=== PATIENT | male | born 1985 | race Two or more races ===

== ENCOUNTER 2018-04-21 20:20 | Inpatient (IN) | payer SELFPAY ==
[~2018-04-21] VITALS: Ht 175.3 cm; Wt 87.3 kg
[2018-04-21] MEDS ORDERED: SODIUM CHLORIDE 0.9% 1,000 ML IVB ONE (21:03)
[2018-04-21 21:47] LABS: Basophils # (auto) 0 uL; Basophils % (auto) 0.1 % (0.0-2.0); Eosinophils # (auto) 0 uL; Eosinophils % (auto) 0.3 % (0.0-7.0); Hematocrit 42.5 % (41.0-53.0); Hemoglobin 14.3 g/dL (13.5-17.5); Lymphocytes # (auto) 1.1 uL; Lymphocytes % (auto) 9.7 % (10.0-50.0); Mean Corpuscular Hemoglobin 30.5 pg (28.0-32.0); Mean Corpuscular Hgb Conc. 33.7 g/dL (32.0-36.0); Mean Corpuscular Volume 90.4 fL (80.0-100.0); Monocytes # (auto) 0.8 uL; Monocytes % (auto) 7.5 % (0.0-12.0); Neutrophils % (auto) 82.4 % (37.0-80.0); Platelet Count (auto) 217 10^3/uL (140-450); Red Cell Distribution Width 12.7 % (11.8-14.3)
[2018-04-21 21:54] LABS: Albumin 3.5 g/dL (3.4-5.0); Calcium 7.8 mg/dL (8.5-10.1); Magnesium 2.2 mg/dL (1.6-2.6); Potassium 4.1 mmol/L (3.5-5.1)
[2018-04-21 21:59] LABS: Bilirubin, Total 0.3 mg/dL (0.2-1.0); Total Protein 6.8 g/dL (6.4-8.2)
[2018-04-21 22:03] LABS: INR 0.96 (0.9-1.15); Partial Thromboplastin Time 23.6 sec (23.78-33.04); Prothrombin Time 10.3 sec (9.27-12.13)
[2018-04-21 23:18] LABS: Urine Bacteria NONE SEEN /hpf (None Seen); Urine Blood Negative /uL (Negative); Urine Specific Gravity 1.012 (1.001-1.035); Urine WBC 2 /hpf (0 - 3)
[2018-04-21 23:33] LABS: Alcohol, Urine < 3.0 mg/dL (0-5); Amphetamine Screen, Urine NEGATIVE (NEGATIVE); Barbiturate Scree,Urine NEGATIVE (NEGATIVE); Benzodiazephine Screen, Urine NEGATIVE (NEGATIVE); Cannabinoid Screen, Urine NEGATIVE (NEGATIVE); Cocaine Screen, Urine NEGATIVE (NEGATIVE); Opiate Scree,Urine NEGATIVE (NEGATIVE); Phencyclidine Screen, Urine NEGATIVE (NEGATIVE)
[2018-04-22] VITALS (19 sets, daily range): BP systolic 88–143; BP diastolic 24–87
[2018-04-22] MEDS ORDERED: HYDROcodone-ACET 5/325MG TAB PO PRN (02:15)
[2018-04-22] MEDS ORDERED: ONDANSETRON HCL 4 MG/2 ML VIAL IV PRN (02:15)
[2018-04-22] MEDS ORDERED: MORPHINE SULFATE 4 MG/ML SYR/VIAL IV PRN (02:15)
[2018-04-22] MEDS ORDERED: ATORVASTATIN 20 MG TAB PO ONE (02:15)
[2018-04-22] MEDS ORDERED: ASPirin 81 mg TAB PO ONE (02:15)
[2018-04-22] MEDS ORDERED: TEMAZEPAM 15 MG CAP PO PRN (02:15)
[2018-04-22] MEDS ORDERED: ACETAMINOPHEN 325 MG TAB PO PRN (02:15)
[2018-04-22] MEDS ORDERED: ENOXAPARIN SOD 100 MG/1 ML SYRINGE SC ONE (02:15)
[2018-04-22] MEDS ORDERED: NITROGLYCERIN 0.4 MG SL TAB SL PRN (02:15)
[2018-04-22] MEDS: SODIUM CHLORIDE 0.9% 1,000 ML IV SCH ×3 (02:54→20:26)
[2018-04-22] MEDS ORDERED: CALCIUM CARB 500 MG CHEW TAB PO ONE (06:00)
[2018-04-22] MEDS ORDERED: ENOXAPARIN SOD 100 MG/1 ML SYRINGE SC SCH (10:00)
[2018-04-22] MEDS ORDERED: FAMOTIDINE 20 MG TAB PO SCH (10:00)
[2018-04-22] MEDS: ASPirin 81 mg TAB PO SCH (10:13)
[2018-04-22] MEDS ORDERED: ANGIOMAX 250 MG VIAL IV ONE (14:12)
[2018-04-22] MEDS ORDERED: SODIUM CHL 0.9% 50 ML ONE (14:13)
[2018-04-22] MEDS ORDERED: fentaNYL CITRATE 100 MCG/2 ML VL ONE (14:13)
[2018-04-22] MEDS ORDERED: MIDAZOLAM HCL 1MG/1ML-2 ML VIAL ONE (14:13)
[2018-04-22] MEDS ORDERED: IODIXANOL 320MG/ML 100ML BTL IV ONE (14:14)
[2018-04-22] MEDS ORDERED: LIDOCAINE 2%HCL (LOCAL ANESTH.) INJ 20ML MDV ONE (14:15)
[2018-04-22] MEDS ORDERED: VERAPAMIL 2.5MG/ML INJ 2ML VIAL IV ONE (14:46)
[2018-04-22] MEDS ORDERED: DOPamine 1600MCG/ML D5W 250 ML IV ONE (15:03)
[2018-04-22] MEDS ORDERED: ATROPINE SULF 1 MG/10ml SYR ONE (15:03)
[2018-04-22] MEDS ORDERED: EPTIFIBATIDE INJ (2MG/ML) 10ML VIAL IV ONE ×3 (15:08→15:32)
[2018-04-22] MEDS ORDERED: ONDANSETRON HCL 4 MG/2 ML VIAL ONE (15:19)
[2018-04-22] MEDS ORDERED: TICAGRELOR 90 MG TAB ONE (15:21)
[2018-04-22] MEDS ORDERED: ASPirin 81 mg TAB ONE (15:21)
[2018-04-22] MEDS ORDERED: DOPamine 1600MCG/ML D5W 250 ML IV SCH (16:18)
[2018-04-22] MEDS ORDERED: PANTOPRAZOLE 40 MG/10 ML VIAL IV ONE (17:00)
[2018-04-22] MEDS ORDERED: ONDANSETRON HCL 4 MG/2 ML VIAL IV ONE (17:00)
[2018-04-22] MEDS: PANTOPRAZOLE 40 MG/10 ML VIAL IV SCH ×2 (17:15→22:19)
[2018-04-22 18:02] LABS: Hematocrit 42.2 % (41.0-53.0); Hemoglobin 14.2 g/dL (13.5-17.5)
--- NOTE | 2018-04-22 19:10 | NUR ---
Admit to ICU PETEY TESFAYE admitted to ICU from skilled laborer via bed, alert, oriented,on environmental monitoring technician, and portable 02 with IVF infusing in the left hand and dopamine in the right forearm @ 8 mcg/min.Patient connected to unit monitoring and oxygen, and weighed by bedscale. Patient oriented to Irais Velarde, primary RN, unit, room, bed, and unit policies regarding patient care and visiting hours. All questions and concerns addressed, patient verbalized understanding. NOTE: Initial VS taken. T 98.4 HR 53 R 20, BP 103/51, MRSA swab done and specimen sent to lab. Left wrist dressing noted to be dry and intact with no bruises or any signs of bleeding, both radial and pedal pulses are palpable.
--- NOTE | 2018-04-22 21:00 | NUR ---
Dopamine drip titrated to 5 mcg/min, BP 143/62, 56. Will continue to monitor.
[2018-04-22] MEDS ORDERED: ENOXAPARIN SOD 80 MG/0.8ML SYRINGE SC SCH (22:00)
[2018-04-22] MEDS ORDERED: ATORVASTATIN 20 MG TAB PO SCH (22:00)
[2018-04-22] MEDS: ATORVASTATIN 20 MG TAB PO SCH (22:19)
[2018-04-23] VITALS (68 sets, daily range): BP systolic 81–123; BP diastolic 33–71
[2018-04-23] MEDS ORDERED: CLOPIDOGREL BISULFATE 75 MG TAB PO ONE ×2 (04:00→11:30)
[2018-04-23 05:56] LABS: Basophils # (auto) 0 uL; Basophils % (auto) 0.2 % (0.0-2.0); Eosinophils # (auto) 0 uL; Eosinophils % (auto) 0.4 % (0.0-7.0); Hematocrit 41.2 % (41.0-53.0); Hemoglobin 13.7 g/dL (13.5-17.5); Lymphocytes # (auto) 1.6 uL; Lymphocytes % (auto) 15.3 % (10.0-50.0); Mean Corpuscular Hemoglobin 30.2 pg (28.0-32.0); Mean Corpuscular Hgb Conc. 33.3 g/dL (32.0-36.0); Mean Corpuscular Volume 90.8 fL (80.0-100.0); Monocytes # (auto) 0.7 uL; Monocytes % (auto) 7.1 % (0.0-12.0); Neutrophils # (auto) 7.9 uL; Platelet Count (auto) 195 10^3/uL (140-450); Red Blood Cells 4.54 10^6/uL (4.5-5.90); Red Cell Distribution Width 12.8 % (11.8-14.3); White Blood Cell 10.2 10^3/uL (4.4-10.8)
[2018-04-23 06:18] LABS: Potassium 3.3 mmol/L (3.5-5.1)
[2018-04-23 06:26] LABS: Albumin 3.2 g/dL (3.4-5.0); Bilirubin, Total 0.7 mg/dL (0.2-1.0); Calcium 7.6 mg/dL (8.5-10.1); Total Protein 6.4 g/dL (6.4-8.2)
--- NOTE | 2018-04-23 07:07 | NUR ---
Closing shift note Resting on bed with no signs of distress, still on dopamine drip @ 5mcg/min, BP 92/50 HR 57
--- NOTE | 2018-04-23 08:00 | NUR ---
Opening Shift Note Assumed care of patient, awake and alert. No S/S of distress/SOB or pain. LT radial dressing dry and intact, palpable pulses, no hematoma, bruising or signs of bleeding noted. Bed locked on low position, side rails up x2, bed alarms on at all times, call cardenas within reach, instructed on POC and to call for assist PRN, will continue to monitor for changes Q1hr and PRN.
--- NOTE | 2018-04-23 08:25 | NUR ---
Paged Dr Bustamante and called back, made aware of patient's potassium of 3.3, updated on patient's status. Received telephone order to give potassium PO. Will carry out new orders.
[2018-04-23] MEDS ORDERED: POTASSIUM CHL 20 Meq TABLET PO ONE (08:45)
--- NOTE | 2018-04-23 08:58 | NUR ---
Dr Bustamante at bedside, updated on patient's status. Will carry out new orders.
[2018-04-23] MEDS: PANTOPRAZOLE 40 MG/10 ML VIAL IV SCH ×2 (09:45→22:24)
[2018-04-23] MEDS: ASPirin 81 mg TAB PO SCH (09:45)
[2018-04-23] MEDS: CALCIUM ACETATE 667 MG CAP PO SCH ×2 (09:46→17:41)
--- NOTE | 2018-04-23 11:15 | NUR ---
Dr Lee at bedside, updated on patient's status. Will carry out new orders.
[2018-04-23] MEDS ORDERED: SODIUM CHLORIDE 0.9% 500 ML IV ONE (12:30)
[2018-04-23] MEDS: SODIUM CHLORIDE 0.9% 1,000 ML IV SCH (14:02)
--- NOTE | 2018-04-23 16:11 | NUR ---
LEFT MESSAGE FOR DR KEENE TO UPDATE MD REGARDING CLEARED FOR TELE
--- NOTE | 2018-04-23 19:45 | NUR ---
ACKNOWLEDGE TELEMETRY ORDERS, HOWEVER, SBP HOVERING IN 80s, WILL MONITOR BEFORE TRANSFERRING OUT.
--- NOTE | 2018-04-23 20:12 | NUR ---
VOIDED 100 ML OF DARK FAITH URINE Addendum: 04/23/18 at 2013 by Abida Carlos RN RN ERROR - WRONG PATIENT
--- NOTE | 2018-04-23 20:30 | NUR ---
OPENING NOTE: A&OX4. APPROPRIATE, PLEASANT AND COOPERATIVE. NSR. HR 60-70s. SBP 80-100s. DENIES CHEST PAIN, PRESSURE, AND DIZZINESS. LS CTA, EVEN AND UNLABORED BREATHING. SpO2>95% ON RA. DENIES SOB. ABD SOFT. HYPOACTIVE BS. LBM 04/21 PER PATIENT. DENIES NAUSEA/VOMITING. REPORTS HE IS HUNGRY. VOIDING IN URINAL. CLEAR, YELLOW URINE. SKIN GROSSLY INTACT. RADIAL ANGIO SITE, CDI, NO ECCHYMOSIS OR HEMATOMA NOTED. 20 G PIV TO RIGHT FOREARM AND LEFT HAND, PATENT WITH BLOOD RETURN. DENIES PAIN. REINFORCED POC. MAINTAINED PATIENT SAFETY. ENCOURAGED PATIENT TO USE CALL LIGHT TO VERBALIZE NEEDS. WILL CONT CARE
[2018-04-23] MEDS: ATORVASTATIN 20 MG TAB PO SCH (22:24)
--- NOTE | 2018-04-23 23:57 | NUR ---
SBP VARYING FROM 80-100s ON LEFT ARM - MOVED BP CUFF TO RIGHT ARM: ASYMPTOMATIC AT THIS TIME, DENIES CHEST PAIN AND PRESSURE, AND DIZZINESS. WILL CONT CARE
[2018-04-24] VITALS (7 sets, daily range): BP systolic 82–114; BP diastolic 47–71
[2018-04-24] MEDS: SODIUM CHLORIDE 0.9% 1,000 ML IV SCH (01:11)
--- NOTE | 2018-04-24 02:07 | NUR ---
ROUNDED: SLEEPING. EVEN AND UNLABORED BREATHING.
[2018-04-24 05:51] LABS: Basophils # (auto) 0 uL; Basophils % (auto) 0.2 % (0.0-2.0); Eosinophils # (auto) 0.1 uL; Hematocrit 40.2 % (41.0-53.0); Hemoglobin 13.6 g/dL (13.5-17.5); Lymphocytes # (auto) 1.4 uL; Lymphocytes % (auto) 17.8 % (10.0-50.0); Mean Corpuscular Hemoglobin 30.8 pg (28.0-32.0); Mean Corpuscular Volume 90.7 fL (80.0-100.0); Monocytes # (auto) 0.7 uL; Monocytes % (auto) 9.1 % (0.0-12.0); Neutrophils # (auto) 5.6 uL; Neutrophils % (auto) 71.9 % (37.0-80.0); Nucleated Red Blood Cells % 0.1 %; Platelet Count (auto) 180 10^3/uL (140-450); Red Blood Cells 4.43 10^6/uL (4.5-5.90); Red Cell Distribution Width 12.7 % (11.8-14.3); White Blood Cell 7.8 10^3/uL (4.4-10.8)
[2018-04-24 06:08] LABS: Potassium 3.6 mmol/L (3.5-5.1)
[2018-04-24 06:14] LABS: BUN/Creatinine Ratio 11.7; Calcium 7.7 mg/dL (8.5-10.1); Magnesium 1.8 mg/dL (1.6-2.6)
--- NOTE | 2018-04-24 07:30 | NUR ---
REPORT RECEIVED FROM STOVE CLEANER NURSE. PATIENT RESTING IN BED AT THIS TIME. RESPIRATIONS EVEN AND UNLABORED. NO SIGNS OF ACUTE DISTRESS NOTED. CALL LIGHT IN REACH, BED IN LOW POSITION. WILL CONTINUE TO MONITOR.
--- NOTE | 2018-04-24 07:52 | NUR ---
REPORT AND CARE ENDORSED TO VITO DURAND
[2018-04-24] MEDS: CALCIUM ACETATE 667 MG CAP PO SCH (08:00)
--- NOTE | 2018-04-24 09:00 | NUR ---
DR MCDONALD AT BEDSIDE TO ASSESS PATIENT. PER MD PATIENT CLEARED TO GO HOME.
--- NOTE | 2018-04-24 09:50 | NUR ---
SPOKE TO DR WEINSTEIN. PER MD PATIENT CAN ADVANCE DIET TO CLEAR LIQUID THEN TOLERATED. PER MD PATIENT TO GO HOME ON PPI.
[2018-04-24] MEDS ORDERED: CLOPIDOGREL BISULFATE 75 MG TAB PO ONE (10:00)
[2018-04-24] MEDS: PANTOPRAZOLE 40 MG/10 ML VIAL IV SCH (10:22)
[2018-04-24] MEDS: ASPirin 81 mg TAB PO SCH (10:22)
--- NOTE | 2018-04-24 11:55 | NUR ---
DR KEENE AT BEDSIDE TO ASSESS PATIENT AND DISCUSS PLAN OF CARE. PER MD PATIENT TO DISCHARGE HOME.
--- NOTE | 2018-04-24 12:06 | NUR ---
PAGED QUANTITY SURVEYOR FOR PATIENTS DISCHARGE AND NEEDING PRIMARY CARE PHYSICIAN AND INSURANCE.
--- NOTE | 2018-04-24 12:11 | NUR ---
SPOKE TO NANCY FROM DIRECTOR OUTCOMES. WILL CONTACT DOM TO FOLLOW UP WITH PATIENT OUTPATIENT TO SET UP INSURANCE SO PATIENT CAN OBTAIN PRIMARY CARE PHYSICIAN.
--- NOTE | 2018-04-24 14:40 | NUR ---
Discharge instructions given as ordered. Encourage to follow up with PMD as instructed and cardiology. Patient given phone numbers for [employer] for insurance follow up and Keri Hay for regional retail sales manager and station superintendent. All questions and concerns addressed. Patient verbalized understanding. Medication reconciliation form completed and copy given to patient. IV's removed with catheter intact, pressure dressing applied. Patient ambulated to vehicle with all personal belongings, accompanied by staff and family member. No distress noted at time of departure.
[2018-04-25] MEDS ORDERED: CLOPIDOGREL BISULFATE 75 MG TAB PO SCH (10:00)
== END 2018-04-24 14:40 | disposition home or self-care (01) | DRG 247 ==
LOC: ER 20:20 → TELE 04-22 02:15 → DOU IN ICU 04-22 19:09
PROVIDERS: ADMIT Nurse Practitioner; ATTEND Family Medicine
PROC: 027034Z Dilation of Coronary Artery, One Artery with Drug-eluting Intraluminal Device, Percutaneous Approach (ICD-10-PCS; principal; 2018-04-22)
PROC: B2111ZZ Fluoroscopy of Multiple Coronary Arteries using Low Osmolar Contrast (ICD-10-PCS; 2018-04-22)
PROC: 4A023N7 Measurement of Cardiac Sampling and Pressure, Left Heart, Percutaneous Approach (ICD-10-PCS; 2018-04-22)
DX: I21.4 Non-ST elevation (NSTEMI) myocardial infarction (principal); K92.0 Hematemesis; N17.9 Acute kidney failure, unspecified; I10 Essential (primary) hypertension; I95.9 Hypotension, unspecified; R55 Syncope and collapse; R00.1 Bradycardia, unspecified; Z79.82 Long term (current) use of aspirin; Z95.5 Presence of coronary angioplasty implant and graft
CPT/HCPCS: 36415; 70450; 71046; 74176; 80048; 80053; 80307; 81001; 83735; 83880; 84100; 84484; 85014; 85018; 85025; 85610; 85730; 87081; 93005; 93306; 96360; 96372; 99152; A6257; C1874; C1887; C9113; G0378; J2250; J2405; Q9967